=== PATIENT | male | born 1960 | race American Indian/Alaskan Native ===

== ENCOUNTER 2016-12-31 08:20 | Emergency (ER) | payer MEDICARE ==
[2016-12-31 12:43] LABS: Bacteria,Urine 1+ /HPF (Negative); Bilirubin,Urine NEG (Negative); Blood,Urine NEG (Negative); Ketones,Urine NEG (Negative); Leukocyte Esterase,Urine TR (Negative); Mucus,Urine FEW /HPF; Nitrite,Urine NEG (Negative); Protein,Urine <15 mg/dL mg/dL (Negative); Urobilinogen,Urine < 2.0 mg/dL (<2.0)
[2016-12-31 13:13] LABS: Basophils % (Auto) 0.8 % (0.0-1.8); Eosinophils % (Auto) 1.4 % (0.0-4.3); Hemoglobin 15.3 gm/dl (11.8-15.2); Mean Corpuscular HGB Conc 34 % (32-34); Mean Corpuscular Hemoglobin 31 pg (28-32); Mean Corpuscular Volume 91 fl (84-94); Platelet Count 219 K/mm3 (140-440); Red Blood Count 4.95 M/mm3 (3.65-5.03); Red Cell Distribution Width 13.3 % (13.2-15.2); White Blood Count 8.4 K/mm3 (4.5-11.0)
[2016-12-31 13:16] LABS: Alanine Aminotransferase 22 units/L (7-56); Albumin 4.1 g/dL (3.9-5); Albumin/Globulin Ratio 1.2 %; Alkaline Phosphatase 102 units/L (35-129); Anion Gap 18 mmol/L; Bilirubin,Total 0.4 mg/dL (0.1-1.2); Blood Urea Nitrogen 11 mg/dL (9-20); Carbon Dioxide 28 mmol/L (22-30); Chloride 94.1 mmol/L (98-107); Glucose 89 mg/dL (75-100); Lipase 179 units/L (13-60); Potassium 3.7 mmol/L (3.6-5.0); Sodium 136 mmol/L (137-145); Total Protein 7.4 g/dL (6.3-8.2)
[2016-12-31 14:17] VITALS: BP 139/94
--- NOTE | 2016-12-31 14:26 | Emergency Department Report ---
ED Abdominal Pain HPI - General Chief Complaint: Abdominal Pain Stated Complaint: STOMACH PAIN Time Seen by Provider: 12/31/16 14:13 Source: patient Mode of arrival: Ambulatory Limitations: No Limitations - History of Present Illness Initial Comments: 56-year-old male presents to the emergency department complaining of abdominal pain and diarrhea. Patient states for the past 7 days he reports cramping lower abdominal pain followed by watery diarrhea. He states his symptoms occur after eating or drinking anything. Patient states he vomited one time earlier today. He denies fever. He denies blood in his stool. There are no other complaints. MD Complaint: abdominal pain -: Gradual, week(s) (1) Location: suprapubic Radiation: none Migration to: no migration Severity: mild Severity scale (0 -10): 0 Quality: cramping Consistency: intermittent Improves With: bowel movement Worsens With: nothing Associated Symptoms: nausea, vomiting - Related Data Previous Rx's Medication Instructions Recorded Last Taken Type Diphenoxylate HCl/Atropine 1 each PO Q6HR PRN #30 tablet 12/31/16 Unknown Rx [Lomotil 2.5-0.025 mg Tablet] Allergies Allergy/AdvReac Type Severity Reaction Status Date / Time No Known Allergies Allergy Unverified 02/25/16 21:52 ED Review of Systems ROS: Stated complaint: STOMACH PAIN Other details as noted in HPI Comment: All other systems reviewed and negative Gastrointestinal: abdominal pain, nausea, vomiting, diarrhea ED Past Medical Hx - Past Medical History Previous Medical History?: Yes Hx Hypertension: Yes Hx Psychiatric Treatment: Yes (depression,schizophrenia) Additional medical history: substance abuse of alcohol and drugs - Surgical History Past Surgical History?: No - Family History Family history: no significant - Social History Smoking Status: Current Every Day Smoker Substance Use Type: None - Medications Home Medications: Home Medications Medication Instructions Recorded Confirmed Last Taken Type Diphenoxylate HCl/Atropine 1 each PO Q6HR PRN #30 tablet 12/31/16 Unknown Rx [Lomotil 2.5-0.025 mg Tablet] ED Physical Exam - General Limitations: No Limitations General appearance: alert, in no apparent distress - Head Head exam: Present: atraumatic, normocephalic - Eye Eye exam: Present: normal appearance, PERRL, EOMI - ENT ENT exam: Present: normal exam, normal orophraynx, mucous membranes moist - Neck Neck exam: Present: normal inspection, full ROM. Absent: tenderness - Respiratory Respiratory exam: Present: normal lung sounds bilaterally. Absent: respiratory distress - Cardiovascular Cardiovascular Exam: Present: regular rate, normal rhythm, normal heart sounds - GI/Abdominal GI/Abdominal exam: Present: soft, normal bowel sounds. Absent: distended, tenderness - Extremities Exam Extremities exam: Present: normal inspection, full ROM. Absent: tenderness - Back Exam Back exam: Present: normal inspection, full ROM. Absent: tenderness - Neurological Exam Neurological exam: Present: alert, oriented X3. Absent: motor sensory deficit - Skin Skin exam: Present: warm, dry, intact ED Course Vital Signs 12/31/16 12/31/16 12/31/16 08:51 14:16 14:17 Temperature 97.5 F L 97.8 F Pulse Rate 95 H 95 H Respiratory 20 16 16 Rate Blood Pressure 147/100 Blood Pressure 139/94 [Left] O2 Sat by Pulse 100 99 99 Oximetry ED Medical Decision Making - Lab Data Result diagrams: 12/31/16 12:43 12/31/16 12:43 - Radiology Data Radiology results: report reviewed CT of the abdomen and pelvis reveals no acute intra-abdominal abnormality. - Medical Decision Making Lab and imaging results reviewed and discussed with the patient. Patient will be discharged home at this time with supportive care. - Differential Diagnosis diarrhea, dehydration, colitis, pancreatic insufficiency Critical care attestation.: If time is entered above; I have spent that time in minutes in the direct care of this critically ill patient, excluding procedure time. ED Disposition Clinical Impression: Diarrhea Qualifiers: Diarrhea type: unspecified type Qualified Code(s): R19.7 - Diarrhea, unspecified Disposition: DISCHARGED TO HOME OR SELFCARE Is pt being admited?: No Condition: Stable Instructions: Acute Diarrhea (ED) Prescriptions: Diphenoxylate HCl/Atropine [Lomotil 2.5-0.025 mg Tablet] 1 each PO Q6HR PRN #30 tablet PRN Reason: Diarrhea Referrals: PRIMARY CARE, [Primary Care Provider] - 3-5 Days Time of Disposition: 15:28
--- NOTE | 2016-12-31 15:13 | Cat Scan Report ---
CT SCAN OF THE ABDOMEN AND PELVIS WITH CONTRAST: HISTORY: Lower abdominal pain, diarrhea. TECHNIQUE: Helical CT in 1.25mm intervals following IV contrast. Sagittal and coronal reconstructions. FINDINGS: The liver is normal in size and is without focal defect. No gallstones or biliary dilatation are noted. The spleen and pancreas demonstrate a normal size and attenuation with no evidence of abnormal mass. The kidneys are normal in size and position with no evidence of hydronephrosis or mass. The adrenal glands are normal. There is no intestinal obstruction or ascites. Normal appendix. The abdominal aorta is normal. No abnormalities are identified within the retroperitoneum or mesentery. There is no evidence of peritoneal air or fluid. There is no evidence of any abnormal masses or fluid collections within the pelvis. No adenopathy is identified. The bladder is normal. IMPRESSION: Unremarkable CT scan of the abdomen and pelvis with contrast.
== END 2016-12-31 15:42 | disposition home or self-care (01) ==
LOC: ED 08:20
DX: R19.7 Diarrhea, unspecified (principal); I10 Essential (primary) hypertension; F32.9 Major depressive disorder, single episode, unspecified; F20.9 Schizophrenia, unspecified; F17.200 Nicotine dependence, unspecified, uncomplicated
CPT/HCPCS: 36415; 74177; 80053; 81001; 83690; 85025; 99284; Q9967

== ENCOUNTER 2017-10-27 16:20 | Emergency (ER) | payer MEDICARE ==
[2017-10-27 17:49] LABS: Basophils # (Auto) 0.1 K/mm3 (0.0-0.1); Eosinophils # (Auto) 0.1 K/mm3 (0.0-0.4); Eosinophils % (Auto) 2.2 % (0.0-4.3); Hematocrit 44.4 % (35.5-45.6); Hemoglobin 15.1 gm/dl (11.8-15.2); Lymphocytes # (Auto) 2.8 K/mm3 (1.2-5.4); Mean Corpuscular HGB Conc 34 % (32-34); Mean Corpuscular Hemoglobin 31 pg (28-32); Mean Corpuscular Volume 92 fl (84-94); Monocytes # (Auto) 0.3 K/mm3 (0.0-0.8); Monocytes % (Auto) 5.1 % (0.0-7.3); Platelet Count 244 K/mm3 (140-440); Red Blood Count 4.83 M/mm3 (3.65-5.03)
[2017-10-27 18:03] LABS: BUN/Creatinine Ratio 15; Blood Urea Nitrogen 12 mg/dL (9-20); Calcium 9.2 mg/dL (8.4-10.2); Hemolysis Index 14
[2017-10-27 18:43] LABS: Bilirubin,Urine NEG (Negative); Blood,Urine NEG (Negative); Color,Urine Yellow (Yellow); Mucus,Urine FEW /HPF; Nitrite,Urine NEG (Negative); Protein,Urine <15 mg/dL mg/dL (Negative)
[2017-10-27 18:54] LABS: Amphetamine Screen,Urine PRESUMPTIVE NEGATIVE; Benzodiazepines Screen,Urine PRESUMPTIVE NEGATIVE; Cannabinoid Screen,Urine PRESUMPTIVE NEGATIVE; Methadone Screen,Urine PRESUMPTIVE NEGATIVE; Opiate Screen,Urine PRESUMPTIVE NEGATIVE
[2017-10-27 19:49] LABS: Cocaine Screen,Urine PRESUMPTIVE POSITIVE
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
[2017-10-28] MEDS ORDERED: NORVASC PO ONE (05:16)
[2017-10-28] MEDS ORDERED: ATIVAN PO PRN ×2 (05:18)
[2017-10-28] MEDS ORDERED: ALUM-MAG HYDROX-SIMETH 200-200-20MG/5ML PO PRN (05:20)
[2017-10-28] MEDS ORDERED: TYLENOL PO PRN (05:20)
[2017-10-28] MEDS ORDERED: MILK OF MAGNESIA PO PRN (05:20)
[2017-10-28 08:49] VITALS: BP 154/101
[2017-10-28] MEDS ORDERED: NORVASC PO SCH (10:00)
== END 2017-10-28 17:43 ==
LOC: ED 16:20
DX: F20.9 Schizophrenia, unspecified (principal); R44.0 Auditory hallucinations; R45.851 Suicidal ideations; R45.850 Homicidal ideations; F14.10 Cocaine abuse, uncomplicated; I10 Essential (primary) hypertension; Z59.0 Homelessness; F32.9 Major depressive disorder, single episode, unspecified; F17.200 Nicotine dependence, unspecified, uncomplicated
CPT/HCPCS: 36415; 80048; 80307; 81001; 82550; 85025; 99285; G0480; 80320

== ENCOUNTER 2019-06-30 23:29 | Emergency (ER) | payer MEDICARE ==
[2019-07-01 01:07] VITALS: BP 135/98
--- NOTE | 2019-07-01 01:13 | Emergency Department Report ---
HPI - General Chief Complaint: Extremity Injury, Upper Time Seen by Provider: 07/01/19 00:59 - HPI HPI: Room 29 The patient is a 58-year-old male presenting with a chief complaint left neck and shoulder pain. Patient states she's had pain in his left neck and shoulder for approximately one year. The patient states at times when he turns his head to the right it would increase the pain to the left shoulder however the pain has worsened recently without turning his head. Patient states he does not sought medical attention about this complaint yet. ED Past Medical Hx - Past Medical History Previous Medical History?: Yes Hx Hypertension: Yes Hx Diabetes: Yes Hx Psychiatric Treatment: Yes (depression,schizophrenia) Additional medical history: Sciatica, substance abuse of alcohol and drugs - Surgical History Past Surgical History?: No - Family History Family history: no significant - Social History Smoking Status: Current Every Day Smoker (1/2 pack per day) Substance Use Type: None (denies illicit drug use) - Medications Home Medications: Home Medications Medication Instructions Recorded Confirmed Last Taken Type Diphenoxylate HCl/Atropine 1 each PO Q6HR PRN #30 tablet 12/31/16 10/28/17 Unknown Rx [Lomotil 2.5-0.025 mg Tablet] Ibuprofen [Motrin 800 MG tab] 800 mg PO Q8HR PRN #20 tablet 07/01/19 Unknown Rx traMADol [Ultram] 50 mg PO Q6HR PRN #20 tablet 07/01/19 Unknown Rx ED Review of Systems ROS: Stated complaint: LT SHOULDER PAIN Other details as noted in HPI Constitutional: no symptoms reported Eyes: denies: eye pain ENT: denies: throat pain Respiratory: no symptoms reported Cardiovascular: denies: chest pain Endocrine: no symptoms reported Musculoskeletal: arthralgia, myalgia Physical Exam - Physical Exam Vital Signs: Vital Signs 06/30/19 23:35 Temperature 97.6 F Pulse Rate 93 H Respiratory 20 Rate Blood Pressure 135/98 O2 Sat by Pulse 98 Oximetry Physical Exam: GENERAL: The patient is well-developed well-nourished male sitting in chair not appearing to be in acute distress. [] HEENT: Normocephalic. Atraumatic. Extraocular motions are intact. Patient has moist mucous membranes. NECK: Supple. No axial tenderness to palpation. CHEST/LUNGS: Clear to auscultation. There is no respiratory distress noted. HEART/CARDIOVASCULAR: Regular. There is no tachycardia. There is no gallop rub or murmur. 2+ left radial pulse ABDOMEN: Abdomen is soft, nontender. Patient has normal bowel sounds. There is no abdominal distention. SKIN: There is no rash. There is no edema. There is no diaphoresis. NEURO: The patient is awake, alert, and oriented. The patient is cooperative. The patient has no focal neurologic deficits. The patient has normal speech MUSCULOSKELETAL: There is mild tenderness of the posterior superior aspect of the left shoulder to palpation. There is no evidence of acute injury. ED Course Vital Signs 06/30/19 23:35 Temperature 97.6 F Pulse Rate 93 H Respiratory 20 Rate Blood Pressure 135/98 O2 Sat by Pulse 98 Oximetry ED Medical Decision Making - Radiology Data Radiology results: report reviewed (C-spine x-ray), image reviewed (C-spine x- ray, left shoulder x-ray) interpreted by me: C-spine x-ray-no acute fracture Left shoulder x-ray-no acute fracture C-spine x-ray (read by radiologist)-degenerative disc changes C5/6, C6/7 - Differential Diagnosis cervical radiculopathy Critical care attestation.: If time is entered above; I have spent that time in minutes in the direct care of this critically ill patient, excluding procedure time. ED Disposition Clinical Impression: Cervical radiculopathy Disposition: - TO HOME OR SELFCARE Is pt being admited?: No Does the pt Need Aspirin: No Condition: Stable Instructions: Cervical Radiculopathy (ED) Prescriptions: Ibuprofen [Motrin 800 MG tab] 800 mg PO Q8HR PRN #20 tablet PRN Reason: Pain, Moderate (4-6) traMADol [Ultram] 50 mg PO Q6HR PRN #20 tablet PRN Reason: Pain Referrals: LAUREEN JUAREZ MD [Staff Physician] - 3-5 Days (Dr. Juarez is an orthopedic surgeon. Please follow up with him for further evaluation) Time of Disposition: 01:50
--- NOTE | 2019-07-01 01:47 | XRay Report ---
Cervical spine, 3 views INDICATION: Neck pain without trauma x1 year FINDINGS: The vertebral body heights are intact. There is moderate disc space narrowing at C5-C6 and C6-C7 with small anterior spurs. No subluxation is seen. Prevertebral soft tissues are normal. [place] id view is unremarkable. IMPRESSION: Mild degenerative disc disease C5-C6 and C6-C7. Signer Name: Jimmie Albarran MD Signed: 07/01/2019 1:42 AM Workstation Name: [id number]
[2019-07-01] MEDS ORDERED: IBUPROFEN 800 MG TAB PO ONE (01:54)
--- NOTE | 2019-07-01 02:15 | XRay Report ---
XR LEFT SHOULDER 3 VIEWS INDICATION / CLINICAL INFORMATION: pain with range of motion COMPARISON: None available. FINDINGS: BONES / JOINT(S): No acute fracture or subluxation. No significant arthritis. SOFT TISSUES: No significant abnormality. ADDITIONAL FINDINGS: None. Signer Name: Pat Harris MD Signed: 07/01/2019 2:10 AM Workstation Name: [id number]
== END 2019-07-01 02:14 | disposition home or self-care (01) ==
LOC: ED 23:29
DX: M54.12 Radiculopathy, cervical region (principal); I10 Essential (primary) hypertension; E11.9 Type 2 diabetes mellitus without complications; F20.9 Schizophrenia, unspecified; F17.200 Nicotine dependence, unspecified, uncomplicated
CPT/HCPCS: 72040